=== PATIENT | male | born 1975 | race Caucasian/White ===

== ENCOUNTER → 2025-02-22 16:10 | Outpatient (REF) | payer OTHER, SELFPAY | LOC: RAD 16:10 | PROVIDERS: ATTENDING PHYSICIAN Specialist; FAMILY PHYSICIAN Family Medicine | DX: R31.0 Gross hematuria (principal) | CPT/HCPCS: 74178; Q9967 ==

== ENCOUNTER → 2025-02-26 16:53 | Outpatient (REF) | payer OTHER, SELFPAY | LOC: MRI 3T 16:53 | PROVIDERS: ATTENDING PHYSICIAN Specialist; FAMILY PHYSICIAN Physician Assistant Medical | DX: D41.02 Neoplasm of uncertain behavior of left kidney (principal); R31.0 Gross hematuria; D41.10 Neoplasm of uncertain behavior of unspecified renal pelvis | CPT/HCPCS: 72197; 74183; A9575 ==

== ENCOUNTER → 2025-03-08 13:37 | Outpatient (REF) | payer OTHER, SELFPAY ==
[2025-03-08 14:13] LABS: Glucose - Point of Care 129 mg/dl (70-99)
== END ==
LOC: RAD 13:37
PROVIDERS: ATTENDING PHYSICIAN Urology; FAMILY PHYSICIAN Physician Assistant Medical
DX: N28.89 Other specified disorders of kidney and ureter (principal)
CPT/HCPCS: 71260; 82962; Q9967

== ENCOUNTER → 2025-06-21 09:03 | Outpatient (REF) | payer OTHER, SELFPAY | LOC: RAD 09:03 | PROVIDERS: ATTENDING PHYSICIAN Urology | DX: C64.2 Malignant neoplasm of left kidney, except renal pelvis (principal) | CPT/HCPCS: 71260; 74177; Q9967 ==

== ENCOUNTER → 2025-09-20 15:32 | Outpatient (REF) | payer OTHER, SELFPAY | LOC: RAD 15:32 | PROVIDERS: ATTENDING PHYSICIAN Urology; FAMILY PHYSICIAN Physician Assistant Medical; REFERRING PHYSICIAN Physician Assistant Medical | DX: N28.89 Other specified disorders of kidney and ureter (principal); C64.2 Malignant neoplasm of left kidney, except renal pelvis; R51.9 Headache, unspecified; G89.29 Other chronic pain; Z15.09 Genetic susceptibility to other malignant neoplasm | CPT/HCPCS: 70470; 74178; Q9967 ==